=== PATIENT | male | born 1975 | race Caucasian/White ===

== ENCOUNTER 2016-08-29 10:10 | Day surgery (SDC) | payer MEDICAID ==
[2016-08-28 16:24] LABS: BASOPHILS 0.2 % (0-2); EOSINOPHILS 2.1 % (0-7); HEMATOCRIT 45.6 % (42.0-54.0); HEMOGLOBIN 15.2 g/dL (13.5-17.5); IMMATURE GRANULOCYTES 0.2 % (0-5); LYMPHOCYTES 47.8 % (15-50); MCH 31.3 pg (26.0-34.0); MCHC 33.3 g/dL (31.0-37.0); MEAN PLATELET VOLUME 9.5 fL (7.4-10.4); MONOCYTES 6.6 % (2-11); NEUTROPHILS 43.1 % (40-80); PLATELET COUNT 230 10x3/uL (130-400); RBC 4.85 10x6/uL (4.20-6.10); RDW 12.9 % (11.5-14.5); WBC 8.5 10x3/uL (4.8-10.8)
[2016-08-28 16:36] LABS: APPEARANCE CLEAR (CLEAR); BILIRUBIN NEGATIVE (NEGATIVE); COLOR YELLOW (YELLOW); GLUCOSE 250 mg/dL (NEGATIVE); KETONE NEGATIVE (NEGATIVE); LEUKOCYTE ESTERASE NEGATIVE (NEGATIVE); NITRITE NEGATIVE (NEGATIVE); PROTEIN NEGATIVE (NEGATIVE); SPECIFIC GRAVITY 1.025 (1.005-1.020); UROBILINOGEN NORMAL (NORMAL)
[2016-08-28 16:37] LABS: CALC OSMOLALITY 278 mosm/kg (275-300); CALCIUM 8.8 mg/dL (8.5-10.1); CARBON DIOXIDE 30.8 mmol/L (21.0-32.0); CHLORIDE - SERUM 103 mmol/L (98-107); CREATININE - SERUM 0.9 mg/dL (0.6-1.3); GLUCOSE 79 mg/dL (74-106); SODIUM 140 mmol/L (136-145); UREA NITROGEN 16 mg/dL (7-18); eGFR NON AFRICAN AMERICAN > 90 mL/min (90-120)
[~2016-08-29] VITALS: Ht 172.7 cm; Wt 100.0 kg
[~2016-08-29 10:10] MED LIST: PERCOCET 10/3251 TA1 PO
[2016-08-29] MEDS ORDERED: NOVOLOG100 U/M1 SC (10:41)
[2016-08-29] MEDS ORDERED: LANTUS INSULIN10 ML SC (10:42)
[2016-08-29 10:45] VITALS: BP 144/101; BMI 33.5
[2016-08-29 15:15] VITALS: BP 133/91
--- NOTE | 2016-08-29 15:15 | NUR ---
RECEIVED TO ROOM 2211 FROM RECOVERY ROOM VIA BED. ORIENTED TO ROOM AND CALL LIGHT SYSTEM. FAMILY IN ROOM. CALL LIGHT IN REACH. VSS. WILL CONTINUE WITH PLAN OF CARE.
--- NOTE | 2016-08-29 15:50 | NUR ---
MATTHIEU PO. LOVENOX SUBQ TO LLQ. HISTORY OBTAINED. SCDs TO BLE. FAMILY IN ROOM. CALL LIGHT IN REACH.
[2016-08-29 15:51] VITALS: Ht 172.7 cm; Wt 100.0 kg
--- NOTE | 2016-08-29 17:50 | NUR ---
REQUESTING MORE PAIN MEDS. STATES HIS PAIN IS STILL AT A 10.
--- NOTE | 2016-08-29 18:12 | NUR ---
MORPHINE 2 MG SIVP PER PATIENT REQUEST D/T PAIN OF 10. NO CHANGES IN INITIAL ASSESSMENT. SCDs TO BLE. FAMILY IN ROOM. CALL LIGHT IN REACH. WILL CONTINUE WITH PLAN OF CARE.
[2016-08-29 23:11] VITALS: BP 107/70
[2016-08-30] VITALS: BP 107/66
--- NOTE | 2016-08-30 00:26 | NUR ---
2029 FSBS 387.HOME MEDS NOT ADDRESSED.TALKED WITH MURALI NO ORDER FOR CONSULT WITH PC DOC.DISCUSSED WITH PT. WILL CALL DR. JACKSON WHO IS ADMITTING DOC.IN REGUARDS TO HOME MEDS STATES PLEASE DON'T CALL ANYONE I WANT FEW PEOPLE POSSIBLE TO KNOW I'M HERE.TOOK OWN INSULIN FROM HOME BROUGHT IN BY FAMILY MEMBER.LINDY BEE SUPER NOTIFIED
--- NOTE | 2016-08-30 07:25 | NUR ---
REPORT RECEIVED FROM CONTRACT ADMINISTRATION MANAGER NURSE. CALL LIGHT IN REACH.
[2016-08-30 07:58] VITALS: BP 128/72
--- NOTE | 2016-08-30 09:40 | NUR ---
ASSESSMENT COMPLETED. DRSG TO BACK CHANGED. DOES NOT WANT LOVENOX AT THIS TIME. STATES PAIN PILLS AREN'T WORKING SO REQUESTING MORPHINE. WILL GIVE IV PER ORDER. REFUSES SCDs ALSO. CALL LIGHT IN REACH. WILL CONTINUE WITH PLAN OF CARE.
[2016-08-30] MEDS ORDERED: PERCOCET 10/3251 TA1 PO (11:04)
--- NOTE | 2016-08-30 11:05 | OP ---
PATIENT NAME: MARIBELL ORNELAS MEDICAL RECORD: [id number] :71 LOCATION:D.MS [id number] ADMISSION DATE:08/29/16 SURGEON: GARRY HARRIS MD DATE OF OPERATION: 08/29/2016 DIAGNOSIS: Lumbar canal stenosis at L4-5 with bilateral nerve root compression. PROCEDURE: METRx lumbar laminectomy with bilateral foraminotomy and decompression of canal. SURGEON: Garry Harris MD. ESTIMATED BLOOD LOSS: 50 cc. SUMMARY: The patient was taken to the operating room and after an adequate level of general anesthetic, was prepped and draped in the usual aseptic manner on a Beau frame. A C-arm fluoroscope was used to localize the site of the incision and then dissection was carried out down to the interlaminar space of L4-5 using a C-arm fluoroscope and the METRx tube was placed over the L4-5 interlaminar space on the left using the C-arm fluoroscope. The tube was then attached to a retractor attached to the operating table. Following this, the medial aspect of the facet joint on the left was removed with a Midas-Charli drill with a match head drill bit. Decompression of the left side of the canal was carried out in this manner. Following this, removal of the lamina of L4 and L5 on the left all the way to the spinous process was carried out and then the removal of the ventral aspect of the spinous processes of L4 and L5 was also accomplished to expose the scar tissue and thickened ligamentum flavum. The thickened ligamentum flavum and scar tissue was then removed with a Kerrison, decompressing the contents of the spinal canal. Further removal of the medial aspect of the facet joint on the right side was carried out by directing the METRx tube in that direction. When a thorough decompression had been accomplished in the spinal canal, the wound was irrigated with an antibiotic solution and closure carried out in layers using 2-0 Dexon on the fascia, 3-0 Dexon on the subcutaneous tissue and a subcuticular stitch on the skin with skin glue on the skin surface being use. The patient tolerated the procedure well and was taken to recovery in stable condition. TRANSINT:[id number] Voice Confirmation ID: [id number] DOCUMENT ID: [id number] GARRY HARRIS MD at 1105 CC: [id number] DICTATION DATE: 08/29/16 1433 BACKROOM ASSOCIATE: 08/30/16 0017 ADM IN [facility] [address] [id number]
--- NOTE | 2016-08-30 11:05 | HP ---
PATIENT: MARIBELL ORNELAS MEDICAL RECORD: [id number] ACCOUNT: [id number] LOCATION:D.MS [place] : 71 ADMISSION DATE: 08/29/16 HISTORY AND PHYSICAL EXAMINATION CHIEF COMPLAINT: Back pain. HISTORY OF PRESENT ILLNESS: This is a young white male who presented to our office with back pain. He has had a previous surgery several years ago by another neurosurgeon. He presented to us from Dr. Zavala's clinic, insulin-dependent, with complaints of back pain, no particular event. He has L3-4 bilateral foraminal stenosis. He was provided with an injection and pain meds, which did not alleviate his pain. He has tried physical therapy 3 times a week with no relief. He has positive straight leg raise on the left and it was determined that he would benefit from surgery. PAST MEDICAL HISTORY: Significant for insulin-dependent diabetes. Low back pain and left shoulder pain. PAST SURGICAL HISTORY: He has had bilateral knee scoped. He has had surgery on his left hip. SOCIAL HISTORY: He is currently . ALLERGIES: None. Pain radiates down into the left leg. REVIEW OF SYSTEMS: He denies any recent chest pain, shortness of breath, or weight changes. PHYSICAL EXAMINATION: HEENT: He is normocephalic. Pupils are equal and reactive to light. CHEST: Clear to auscultation. HEART: S1 and S2. ABDOMEN: Soft. Bowel sounds present. EXTREMITIES: He has a sore on his left ring finger that Dr. Harris is aware of. He has straight leg raise and bilateral decreased patellar reflex and he has weak dorsiflexion on the left foot, it is 3/5. IMPRESSION: L4-5 lumbar canal stenosis with nerve root compression. PLAN: L4-5 laminectomy and bilateral foraminotomy. The risk and benefits of surgery have been explained to him in detail. Risks include bleeding, failure to relieve symptoms, problems with anesthesia and . Time was allowed for questions, questions were answered. The patient wishes to proceed with surgery. TRANSINT:[id number] Voice Confirmation ID: [id number] DOCUMENT ID: [id number] Dictated By: NICK LOPEZ I have interviewed/examined the above patient and agree with these documented findings. HISTORY AND PHYSICAL [id number] MARIBELL ORNELAS, GARRY ESPINO at 1105 at 1137 CC: [id number] DICTATION DATE: 08/28/16 1603 CODING FILE CLERK: 08/28/162026 ADM IN [facility] [address] [id number]
--- NOTE | 2016-08-30 11:12 | NUR ---
IV DC'D WITH TIP INTACT.
--- NOTE | 2016-08-30 13:00 | NUR ---
DC INSTRUCTIONS EXPLAINED TO PATIENT. VERBALIZED UNDERSTANDING. RX FOR PERCOCET HANDED TO PATIENT. DC'D TO VEHICLE VIA WC WITH FAMILY.
== END 2016-08-30 13:00 | disposition home or self-care (01) ==
LOC: D.OPS 10:10 → D.PAN 12:00 → D.OPS 12:00 → D.MS 15:02 → D.OPS 15:03 → D.MS 21:39 → D.OPS 21:39 → D.MS 08-30 13:00
PROVIDERS: Neurological Surgery
DX: M48.06 Spinal stenosis, lumbar region (principal); G54.4 Lumbosacral root disorders, not elsewhere classified; E11.9 Type 2 diabetes mellitus without complications; Z79.4 Long term (current) use of insulin; Z79.899 Other long term (current) drug therapy; Z01.812 Encounter for preprocedural laboratory examination

== ENCOUNTER → 2016-11-09 09:19 | Outpatient (CLI) | payer MEDICAID ==
[2016-08-29 15:51] VITALS: BMI 33.5
[~2016-11-09 09:19] MED LIST changes: +LANTUS INSULIN10 ML SC; +NOVOLOG100 U/M1 SC
== END | disposition home or self-care (01) ==
LOC: D.RAD 09:19
DX: M24.152 Other articular cartilage disorders, left hip (principal)

== ENCOUNTER 2018-08-30 19:32 | Inpatient (IN) | payer OTHER ==
[2018-08-30] MEDS ORDERED: PHENERGAN25 M1 PO (20:09)
[2018-08-30 20:45] LABS: BASOPHILS 0.1 % (0-2); EOSINOPHILS 0 % (0-7); HEMATOCRIT 51.7 % (42.0-54.0); HEMOGLOBIN 18.8 g/dL (13.5-17.5); IMMATURE GRANULOCYTES 0.4 % (0-5); LYMPHOCYTES 12.8 % (15-50); MCH 32.4 pg (26.0-34.0); MCHC 36.4 g/dL (31.0-37.0); MCV 89.1 fL (80.0-100.0); MEAN PLATELET VOLUME 9.5 fL (7.4-10.4); MONOCYTES 6.2 % (2-11); NEUTROPHILS 80.5 % (40-80); RDW 12.6 % (11.5-14.5); WBC 17.8 10x3/uL (4.8-10.8)
[2018-08-30 20:48] LABS: APPEARANCE CLEAR (CLEAR); COLOR YELLOW (YELLOW)
[2018-08-30 20:48] LABS: PLATELET COUNT 304 10x3/uL (130-400)
[2018-08-30 20:49] LABS: BILIRUBIN NEGATIVE (NEGATIVE); GLUCOSE 1000 mg/dL (NEGATIVE); KETONE LARGE mg/dL (NEGATIVE); NITRITE NEGATIVE (NEGATIVE); PROTEIN NEGATIVE (NEGATIVE); UROBILINOGEN NORMAL (NORMAL)
[2018-08-30 21:05] LABS: ALBUMIN 4.6 g/dL (3.4-5.0); ANION GAP 27.4 mmol/L (8-16); BILIRUBIN - TOTAL 1.11 mg/dL (0.2-1.3); CALCIUM 9.6 mg/dL (8.5-10.1); CARBON DIOXIDE 19.7 mmol/L (21.0-32.0); CREATININE - SERUM 2.1 mg/dL (0.6-1.3); POTASSIUM - SERUM 4.1 mmol/L (3.5-5.1); PROTEIN - SERUM 8.8 g/dL (6.4-8.2)
[2018-08-30 21:52] VITALS: BP 171/95
[2018-08-30 22:19] VITALS: BP 155/88
--- NOTE | 2018-08-30 22:30 | NUR ---
REPORT CALLED TO LILLY, FLOOR NURSE AT THIS TIME.
[2018-08-30 23:01] LABS: PHOSPHOROUS 4.4 mg/dL (2.5-4.9)
[2018-08-31] VITALS (7 sets, daily range): BP systolic 131–165; BP diastolic 85–95; BMI 30.9; BMI 30.8
--- NOTE | 2018-08-31 01:00 | NUR ---
RECIEVED PT FROM ER TO FLOOR VIA WHEELCHAIR. PT KEEPS DRINKING DIET SPRITE AND VOMITING. SUGGESTED TO PT THAT HE SHOULD NOT DRINK ANYTHING HE CONTINUES TO VOMIT IT UP. PT STATES HE IS JUST SO THIRSTY. ALSO C/O THROAT PAIN 12/26. SET UP DILAUDID ELECTROMECHANIC AND INSTRUCTED ON USE. PT HAS RECEIVED ALL BOLUSES AND IS ON CONTINUOUS FLUID. REVIEWED HOME MEDS AND HISTORY. ASSESSMENT COMPLETE PER FLOW-SHEET. WILL CONTINUE TO MONITOR.
[2018-08-31 06:16] LABS: BASOPHILS 0.1 % (0-2); EOSINOPHILS 0 % (0-7); HEMATOCRIT 43.1 % (42.0-54.0); HEMOGLOBIN 15.4 g/dL (13.5-17.5); IMMATURE GRANULOCYTES 0.4 % (0-5); LYMPHOCYTES 12.7 % (15-50); MCH 31.6 pg (26.0-34.0); MCHC 35.7 g/dL (31.0-37.0); MCV 88.5 fL (80.0-100.0); MEAN PLATELET VOLUME 9.1 fL (7.4-10.4); MONOCYTES 7.9 % (2-11); NEUTROPHILS 78.9 % (40-80); RBC 4.87 10x6/uL (4.20-6.10); RDW 12.8 % (11.5-14.5); WBC 15.6 10x3/uL (4.8-10.8)
[2018-08-31 06:19] LABS: PLATELET COUNT 231 10x3/uL (130-400)
[2018-08-31 06:59] LABS: ANION GAP 11.5 mmol/L (8-16); PHOSPHOROUS 3.6 mg/dL (2.5-4.9); POTASSIUM - SERUM 3.7 mmol/L (3.5-5.1)
[2018-08-31 07:00] LABS: CARBON DIOXIDE 27.2 mmol/L (21.0-32.0); CREATININE - SERUM 1.2 mg/dL (0.6-1.3)
--- NOTE | 2018-08-31 13:54 | NUR ---
SPOKE TO FEI IN MEDICAL IMAGING. PT HAS NOT BEEN NPO, PER DR LEON CAN DO TEST TOMORROW MORNING
--- NOTE | 2018-08-31 18:55 | NUR ---
PATIENT IN BED WITH IV INTACT. NO COMPLAINTS AT THIS TIME. NAUSEATED ON AND OFF ALL DAY, BUT STATED NEVER VOMITTED. ONLY HAD DRY HEEVES. TOLERATED SMALL AMOUNT OF CLEAR LIQUIDS. IV INTACT. CALL LIGHT WITHIN REACH.
[2018-09-01] VITALS: BP 144/84
--- NOTE | 2018-09-01 00:15 | NUR ---
PT C/O ITCHING. RED SPLOTCHY RASH ON BILAT THIGHS, ABDOMEN UP TO CHEST AND AROUND TO BACK. CALLED PHYSICIAN. ORDER FOR BENADRYL AND SOLUMEDROL. BENADRYL GIVEN, WAITING FOR TRACK FITTER TO PULL SOLUMEDROL. PT TOOK SHOWER AND BED WAS CHANGED. APPLIED NEW DRESSING WITH BETADINE WET TO DRY PER DRESSING CHANGE INSTRUCTIONS. NO OTHER NEEDS. WILL CONTINUE TO MONITOR.
--- NOTE | 2018-09-01 01:21 | NUR ---
PT C/O NAUSEA. GAVE ZOFRAN IV PUSH. POLICY WRITER FOR PAIN CONTROL. PT IS NPO FOR TEST IN AM. COMPLETE ASSESSMENT PER FLOW-SHEET. NO OTHER NEEDS. WILL CONTINUE TO MONITOR.
[2018-09-01 06:37] LABS: BASOPHILS 0.1 % (0-2); EOSINOPHILS 0.3 % (0-7); HEMATOCRIT 40.5 % (42.0-54.0); HEMOGLOBIN 14.1 g/dL (13.5-17.5); IMMATURE GRANULOCYTES 0.3 % (0-5); LYMPHOCYTES 28.4 % (15-50); MCH 31.6 pg (26.0-34.0); MCHC 34.8 g/dL (31.0-37.0); MEAN PLATELET VOLUME 9.7 fL (7.4-10.4); MONOCYTES 6.7 % (2-11); NEUTROPHILS 64.2 % (40-80); PLATELET COUNT 204 10x3/uL (130-400); RBC 4.46 10x6/uL (4.20-6.10); RDW 12.7 % (11.5-14.5)
[2018-09-01 07:03] LABS: MCV 90.8 fL (80.0-100.0)
[2018-09-01 07:28] LABS: CALC OSMOLALITY 277 mosm/kg (275-300); CALCIUM 7.5 mg/dL (8.5-10.1); CHLORIDE - SERUM 97 mmol/L (98-107); CREATININE - SERUM 0.9 mg/dL (0.6-1.3); GLUCOSE 278 mg/dL (74-106); LIPASE 74 U/L (73-393); MAGNESIUM - SERUM 1.7 mg/dL (1.8-2.4); POTASSIUM - SERUM 3.8 mmol/L (3.5-5.1); SODIUM 134 mmol/L (136-145); eGFR NON AFRICAN AMERICAN > 90 mL/min (90-120)
[2018-09-01 07:31] LABS: AMYLASE - SERUM 26 U/L (25-115); PHOSPHOROUS 2.5 mg/dL (2.5-4.9); UREA NITROGEN 12 mg/dL (7-18)
--- NOTE | 2018-09-01 07:59 | NUR ---
PT SITTING IN BED. DENIES PAIN. CO OF "DRY HEAVING BETTER AFTER ZOFRAN." NO S/S OF ACUTE DISTRESS NPO FOR ULTRA SOUND THIS AM. CL IN PLACE.
[2018-09-01 10:13] VITALS: BP 158/87
[2018-09-01 13:54] VITALS: BP 150/98
[2018-09-01 17:49] VITALS: BP 146/95
--- NOTE | 2018-09-01 18:19 | NUR ---
PT RESTING IN BED. PHENERGAN GIVEN X 2 THIS SHIFT FOR CO OF NAUSEA. NO EMESIS NOTED. NO S.S OF ACUTE DISTRESS. CL IN PLACE.
[2018-09-01 21:25] VITALS: BP 147/95
--- NOTE | 2018-09-01 22:13 | NUR ---
PT ALERT & ORIENTED. C/O NAUSEA. GAVE ZOFRAN 4 MG IV PUSH. GAVE SCHEDULED MEDS. SEE FLOW-SHEET FOR COMPLETE ASSESSMENT. NO OTHER NEEDS. WILL REASSESS AND CONTINUE TO MONITOR.
[2018-09-02 01:19] VITALS: BP 145/92
[2018-09-02 06:53] LABS: BASOPHILS 0.1 % (0-2); EOSINOPHILS 0.5 % (0-7); HEMATOCRIT 41.6 % (42.0-54.0); HEMOGLOBIN 14.6 g/dL (13.5-17.5); IMMATURE GRANULOCYTES 0.1 % (0-5); LYMPHOCYTES 36.5 % (15-50); MCH 31.6 pg (26.0-34.0); MCHC 35.1 g/dL (31.0-37.0); MEAN PLATELET VOLUME 9.3 fL (7.4-10.4); MONOCYTES 9.1 % (2-11); NEUTROPHILS 53.7 % (40-80); PLATELET COUNT 197 10x3/uL (130-400); RBC 4.62 10x6/uL (4.20-6.10); RDW 12.4 % (11.5-14.5)
[2018-09-02 07:30] LABS: AMYLASE - SERUM 24 U/L (25-115); CALCIUM 8.1 mg/dL (8.5-10.1); CHLORIDE - SERUM 99 mmol/L (98-107); CREATININE - SERUM 0.9 mg/dL (0.6-1.3); LIPASE 101 U/L (73-393); PHOSPHOROUS 3.1 mg/dL (2.5-4.9); POTASSIUM - SERUM 3.5 mmol/L (3.5-5.1); SODIUM 138 mmol/L (136-145); WBC 7.6 10x3/uL (4.8-10.8); eGFR NON AFRICAN AMERICAN > 90 mL/min (90-120)
[2018-09-02 07:32] LABS: CALC OSMOLALITY 279 mosm/kg (275-300); CARBON DIOXIDE 31.3 mmol/L (21.0-32.0); GLUCOSE 215 mg/dL (74-106); UREA NITROGEN 8 mg/dL (7-18)
--- NOTE | 2018-09-02 08:43 | NUR ---
PT REFUSED PATCH THIS MORNING, REQUESTRED TO HAVE A BIT OF MORE SOLID FOODS TODAY AND STATED HE IS READY TO GO HOME. PT STATED HIS THROAT FELT BETTER. BED IN LOWEST POSITION, CL IN REACH ADVISED DOCTORS SHOULD BE AROUND THIS MORNING NAD WE CAN INQUIRE ON MORE OF A SOLID SUBSTANCE THAN CLEAR LIQUIDS
[2018-09-02 08:55] VITALS: BP 157/99
[2018-09-02 12:34] VITALS: BP 155/97
--- NOTE | 2018-09-02 12:56 | NUR ---
PT HAS BEEN NPO OR ON A CLEAR LIQUID DIET SINCE ADMIT HAS NOT NEEDED TO GO WOULD LIKE OT HAVE SOME MORE OF A SOLID SUBSTANCE TO EAT SO HE CAN USE THE RESTROOM, PT DECLINED MIRALAX AND WOULD LIKE A FULL LIQUID OR DIABETIC DIET
--- NOTE | 2018-09-02 13:32 | NUR ---
NUTRITION F/U CURRENTLY ON CLEAR LIQUID DIET. WILL MONITOR DIET ADVANCEMENT, PO INTAKE. RD FOLLOWING
--- NOTE | 2018-09-02 17:06 | NUR ---
I AGREE WITH THE DOUBLE CUTTER ASSESSMENT.
[2018-09-02 17:33] VITALS: BP 150/93
[2018-09-02 20:00] VITALS: BP 154/99
[2018-09-02 20:06] LABS: SPE - A/G RATIO 1.1 (0.7-1.7); SPE - ALBUMIN 4.3 g/dL (2.9-4.4); SPE - ALPHA-1 GLOBULIN 0.3 g/dL (0.0-0.4); SPE - ALPHA-2 GLOBULIN 1.1 g/dL (0.4-1.0); SPE - BETA GLOBULIN 1.3 g/dL (0.7-1.3); SPE - GAMMA GLOBULIN 1.3 g/dL (0.4-1.8); SPE - M-SPIKE Not Observed g/dL (Not Observed); SPE - TOTAL PROTEIN 8.2 g/dL (6.0-8.5)
--- NOTE | 2018-09-02 23:00 | NUR ---
RECEIVED CARE FROM PREVIOUS NURSE. UP AMBULATING IN [place]STI[facility]. NO NEEDS VOICED.
--- NOTE | 2018-09-03 02:14 | NUR ---
PT C/O FEELING LIKE SUGAR WAS LOW. HANDS SHAKING AND CLAMMY. FSBS DONE WITH RESULTS OF 70. PT REPORTS WHEN HIS SUGAR HAS BEEN RUNNING HIGH AND IT DROPS TO NORMAL HE FEELS LIKE HE IS IN THE 30'S. HARI CRACKERS AND PEANUT BUTTER PROVIDED. PT HAD APPLE JUICE AT BEDSIDE ALREADY. WILL RECHECK SUGAR IN ONE HOUR.
--- NOTE | 2018-09-03 02:58 | NUR ---
I have reviewed this patient and I concur with the Shift Assessment completed by the Licensed Practical Nurse today this shift.
--- NOTE | 2018-09-03 03:23 | NUR ---
FSBS RECHECK 100
[2018-09-03 05:39] LABS: BASOPHILS 0.3 % (0-2); EOSINOPHILS 1.2 % (0-7); HEMATOCRIT 45.3 % (42.0-54.0); HEMOGLOBIN 15.8 g/dL (13.5-17.5); IMMATURE GRANULOCYTES 0.1 % (0-5); LYMPHOCYTES 42.2 % (15-50); MCH 31.5 pg (26.0-34.0); MCHC 34.9 g/dL (31.0-37.0); MCV 90.2 fL (80.0-100.0); MEAN PLATELET VOLUME 9.2 fL (7.4-10.4); MONOCYTES 8.9 % (2-11); NEUTROPHILS 47.3 % (40-80); PLATELET COUNT 198 10x3/uL (130-400); RBC 5.02 10x6/uL (4.20-6.10); RDW 12.1 % (11.5-14.5); WBC 7.2 10x3/uL (4.8-10.8)
[2018-09-03 05:55] LABS: CALC OSMOLALITY 276 mosm/kg (275-300); CALCIUM 8.3 mg/dL (8.5-10.1); CHLORIDE - SERUM 100 mmol/L (98-107); CREATININE - SERUM 0.8 mg/dL (0.6-1.3); LIPASE 102 U/L (73-393); MAGNESIUM - SERUM 1.9 mg/dL (1.8-2.4); PHOSPHOROUS 3.8 mg/dL (2.5-4.9); POTASSIUM - SERUM 3.3 mmol/L (3.5-5.1); SODIUM 140 mmol/L (136-145); UREA NITROGEN 8 mg/dL (7-18); eGFR NON AFRICAN AMERICAN > 90 mL/min (90-120)
[2018-09-03 06:02] LABS: AMYLASE - SERUM 33 U/L (25-115); GLUCOSE 97 mg/dL (74-106)
[2018-09-03 06:26] VITALS: BP 132/92
[2018-09-03 09:30] VITALS: BP 139/92
--- NOTE | 2018-09-03 11:28 | NUR ---
0720 AWAKE ALERT ORIENTED X 4 VOICES NO COMPLAINTS ASSESSMENT COMPLETE HEBER IRAHETA, FOR DR SUMMERS, AT BEDSIDE ROUNDING ON PATIENT
--- NOTE | 2018-09-03 11:32 | NUR ---
1100 D/C IV DISCHARGE PAPERS SIGNED AND INSTRUCTIIONS PRPOVIDED. STATED HIS RIDE WILL NOT BE HERE UNTIL AROUND 1230. ANSWERED ALL QUESTIIONS FOR PATIENT. PROVIDED HYGIENE ITEMS SO PATIENT CAN TAKE SHOWER.
--- NOTE | 2018-09-03 11:32 | NUR ---
1030 D/C DILAUDID MEDIA RELATIONS MANAGER
== END 2018-09-03 12:02 | disposition home or self-care (01) | DRG 682 ==
LOC: D.ER 19:32 → D.MS 21:35
PROVIDERS: Emergency Medicine; Internal Medicine Nephrology; ADMIT Family Medicine; ATTEND Family Medicine
DX: N17.9 Acute kidney failure, unspecified (principal); E11.10 Type 2 diabetes mellitus with ketoacidosis without coma; E87.1 Hypo-osmolality and hyponatremia; B37.0 Candidal stomatitis; R39.2 Extrarenal uremia; E86.0 Dehydration; E11.69 Type 2 diabetes mellitus with other specified complication; K12.1 Other forms of stomatitis; K12.0 Recurrent oral aphthae

== ENCOUNTER 2018-11-13 06:23 | Inpatient (IN) | payer OTHER ==
[~2018-11-13] VITALS: Ht 172.7 cm; Wt 95.7 kg
[2018-11-13] VITALS (13 sets, daily range): BP systolic 108–157; BP diastolic 65–100; Ht 172.7 cm; Wt 95.7 kg
[~2018-11-13 06:23] MED LIST changes: +PHENERGAN25 M1 PO
[2018-11-13 07:11] LABS: BASOPHILS 0.1 % (0-2); EOSINOPHILS 0.1 % (0-7); HEMATOCRIT 50.2 % (42.0-54.0); HEMOGLOBIN 18.3 g/dL (13.5-17.5); IMMATURE GRANULOCYTES 0.7 % (0-5); LYMPHOCYTES 13.6 % (15-50); MCH 33.2 pg (26.0-34.0); MCHC 36.5 g/dL (31.0-37.0); MCV 90.9 fL (80.0-100.0); MEAN PLATELET VOLUME 9.8 fL (7.4-10.4); NEUTROPHILS 83.5 % (40-80); RBC 5.52 10x6/uL (4.20-6.10); RDW 12.8 % (11.5-14.5); WBC 18.4 10x3/uL (4.8-10.8)
--- NOTE | 2018-11-13 07:12 | NUR ---
ASSUMED CARE OF PATIENT. PATIENT SUPINE IN BED, C/O VOMITING. EMESIS CLEAR AND SCANT AMOUNT. PATIENT DRINKING A BOTTLE OF WATER BEFORE AND AFTER VOMITING, SPEWING FROM MOUTH. VITAL SIGNS STABLE. EKG PERFORMED, IV TO R FOREARM PATENT WITH NS BOLUS INFUSING.
[2018-11-13 07:20] LABS: PLATELET COUNT 295 10x3/uL (130-400)
[2018-11-13 07:21] LABS: ALBUMIN 4.5 g/dL (3.4-5.0); ALKALINE PHOSPHATASE 92 U/L (46-116); ALT (SGPT) 40 U/L (10-68); AMYLASE - SERUM 39 U/L (25-115); BILIRUBIN - TOTAL 1.06 mg/dL (0.2-1.3); CALCIUM 9.8 mg/dL (8.5-10.1); CARBON DIOXIDE 15.6 mmol/L (21.0-32.0); CREATININE - SERUM 1.9 mg/dL (0.6-1.3); LIPASE 85 U/L (73-393); POTASSIUM - SERUM 4.7 mmol/L (3.5-5.1); PROTEIN - SERUM 8.9 g/dL (6.4-8.2); SODIUM 131 mmol/L (136-145); TROPONIN-I < 0.017 ng/mL (0.000-0.060); UREA NITROGEN 29 mg/dL (7-18); eGFR NON AFRICAN AMERICAN 41 mL/min (90-120)
[2018-11-13 07:25] LABS: APPEARANCE HAZY (CLEAR); BILIRUBIN NEGATIVE (NEGATIVE); COLOR YELLOW (YELLOW); GLUCOSE 1000 mg/dL (NEGATIVE); KETONE LARGE mg/dL (NEGATIVE); NITRITE NEGATIVE (NEGATIVE); PROTEIN NEGATIVE (NEGATIVE); UROBILINOGEN NORMAL (NORMAL)
[2018-11-13 07:25] LABS: CALC OSMOLALITY 296 mosm/kg (275-300)
[2018-11-13 07:28] LABS: CHLORIDE - SERUM 85 mmol/L (98-107); GLUCOSE 606 mg/dL (74-106)
--- NOTE | 2018-11-13 07:28 | NUR ---
NOTIFIED OF CRITICAL LABS FOLLOWS, GLUCOSE 606, CHLORIDE 85. EDP NOTIFIED WELL PT'S PRIMARY ED RN.
--- NOTE | 2018-11-13 07:32 | NUR ---
CRITICAL LABS REPORTED TO DR GALDAMEZ. VERBAL ORDERS RECVD.
--- NOTE | 2018-11-13 08:06 | NUR ---
PATIENT RESTING. NO DISTRESS. EATING ICE CHIPS ORDERED BY DR. GALDAMEZ.
--- NOTE | 2018-11-13 09:11 | NUR ---
critical glucose of [address] nieves. no new oders.
--- NOTE | 2018-11-13 09:22 | NUR ---
LAB CALLED WITH CRITICAL RESULT.. LACTIC ACID 3.6
--- NOTE | 2018-11-13 09:33 | NUR ---
Report and care handed off to livan singh in icu. pt tolerated transport without issues to room 2309.
--- NOTE | 2018-11-13 09:40 | NUR ---
RECEIVED PT FROM ER. HOOKED UP TO MONITOR. VSS. WILL CHECK SUGAR AND BEGIN DKA PROTOCOL. PT ALERT AND ORIENTED. CALL CHAVEZ IN REACH
--- NOTE | 2018-11-13 11:00 | NUR ---
PT STABLE. INSULIN DRIP PER PROTOCOL.
--- NOTE | 2018-11-13 13:00 | NUR ---
DR. HERNÁNDEZ MADE ROUNDS. INSULIN DRIP INFUSING PER PROTOCOL. CALL CHAVEZ IN REACH. NO COMPLAINTS
--- NOTE | 2018-11-13 15:44 | NUR ---
PATIENT TAKEN FOR GASTRIC EMPTYING NM SCAN
[2018-11-13 17:41] LABS: CALCIUM 9.1 mg/dL (8.5-10.1)
[2018-11-13 17:46] LABS: ANION GAP 13.5 mmol/L (8-16); CARBON DIOXIDE 28.3 mmol/L (21.0-32.0); CREATININE - SERUM 1.4 mg/dL (0.6-1.3); POTASSIUM - SERUM 3.8 mmol/L (3.5-5.1)
--- NOTE | 2018-11-13 18:00 | NUR ---
NOTIFIED DR. HERNÁNDEZ THAT ANION GAP IS CLOSED AND SERUM KETONES ARE NEGATIVE. OBTAINED ORDERS FOR CLEAR LIQUID DIET AND TO START HOME INSULIN TONIGHT (LANTUS). DISCOTINUE INSULIN DRIP 2 HOURS AFTER GIVING LANTUS
--- NOTE | 2018-11-13 19:10 | NUR ---
Received patient resting in bed with eyes open, assessment completed per flowsheet. Patient AO x4, answers appropriately/follows instructions. S1/S2 noted NSR on telemetry, rythmic and regular. Breathing is even/unlabored on room air with O2 sat 96%, lung sounds clear throughtout. Abdomen is round/soft with bowel sounds active x4, non-tender. Patient C/O intermittent aching 5/10, PRN medication provided. All pulses palpable with cap refill < 3 sec, skin warm/dry. No further needs at this time, see flowsheet for details. All VSS and will continue to monitor.
--- NOTE | 2018-11-13 21:10 | NUR ---
Patient resting in bed with eyes open, discussed current status with all questions answered to satisfaction. HS meds given as ordered, no further needs at this time and will continue to monitor.
[2018-11-13 21:46] LABS: ANION GAP 11.3 mmol/L (8-16); CALCIUM 8.4 mg/dL (8.5-10.1); CARBON DIOXIDE 28.4 mmol/L (21.0-32.0); CREATININE - SERUM 1.2 mg/dL (0.6-1.3); POTASSIUM - SERUM 3.7 mmol/L (3.5-5.1)
--- NOTE | 2018-11-13 23:10 | NUR ---
Reassessment completed per flowsheet, no changes noted from previous assessment. Clear liquids provided at request, denies needs at this time. Insulin GTT D/C per Dr Cardozo orders, see flowsheet for details. All VSS and will continue to monitor.
[2018-11-14] VITALS (23 sets, daily range): BP systolic 121–187; BP diastolic 70–151
--- NOTE | 2018-11-14 01:00 | NUR ---
Patient sitting on edge of bed c/o acid reflux, dry heaves observed. PRN medication provided with some stated relief, no further needs and will continue to monitor.
--- NOTE | 2018-11-14 03:10 | NUR ---
Reassessment completed per flowsheet, no changes noted from previous assessment. Patient AO x4, answers appropriately/follows instructions. Patient C/O acid reflux, denies needs at this time. All pulses palpable with cap refill < 3 sec, skin warm/dry. Denies pain or other needs, see flowsheet for details. All VSS and will continue to monitor.
[2018-11-14 04:34] LABS: BASOPHILS 0.1 % (0-2); EOSINOPHILS 0.1 % (0-7); HEMATOCRIT 43.5 % (42.0-54.0); HEMOGLOBIN 15.7 g/dL (13.5-17.5); IMMATURE GRANULOCYTES 0.3 % (0-5); MCH 32.3 pg (26.0-34.0); MCHC 36.1 g/dL (31.0-37.0); MCV 89.5 fL (80.0-100.0); MEAN PLATELET VOLUME 9.4 fL (7.4-10.4); MONOCYTES 5.1 % (2-11); NEUTROPHILS 81.4 % (40-80); PLATELET COUNT 239 10x3/uL (130-400); RBC 4.86 10x6/uL (4.20-6.10); RDW 12.7 % (11.5-14.5)
[2018-11-14 04:57] LABS: ALBUMIN 3.5 g/dL (3.4-5.0); ANION GAP 16.3 mmol/L (8-16); BILIRUBIN - TOTAL 0.67 mg/dL (0.2-1.3); CALCIUM 8.4 mg/dL (8.5-10.1); CREATININE - SERUM 1.2 mg/dL (0.6-1.3); MAGNESIUM - SERUM 1.6 mg/dL (1.8-2.4); PROTEIN - SERUM 7.2 g/dL (6.4-8.2)
[2018-11-14 05:02] LABS: POTASSIUM - SERUM 4.3 mmol/L (3.5-5.1)
--- NOTE | 2018-11-14 09:28 | NUR ---
RESTARTED INSULIN DRIP PER PROTOCOL. PATIENT IS BACK IN DKA. BG 373. DRIP PER CALCULATION 9.4UNITS/HR. HUNG BACK OF NORMAL SALINE DUE TO LOW SODIUM.
[2018-11-14 09:42] LABS: AMYLASE - SERUM 34 U/L (25-115); LIPASE 64 U/L (73-393)
--- NOTE | 2018-11-14 11:00 | NUR ---
PT STABLE. STILL NAUSEATED
--- NOTE | 2018-11-14 13:00 | NUR ---
OBTAINED ORDERS FOR ZOFRAN DRIP AND CHLORESEPTIC SPRAY. PT STABLE
--- NOTE | 2018-11-14 15:00 | NUR ---
PT STABLE. STILL ON INSULIN DRIP. BG IN GOAL RANGE
[2018-11-14 18:57] LABS: CALC OSMOLALITY 279 mosm/kg (275-300); CALCIUM 8.1 mg/dL (8.5-10.1); CARBON DIOXIDE 25.9 mmol/L (21.0-32.0); CHLORIDE - SERUM 101 mmol/L (98-107); POTASSIUM - SERUM 3.7 mmol/L (3.5-5.1); SODIUM 138 mmol/L (136-145); UREA NITROGEN 15 mg/dL (7-18); eGFR NON AFRICAN AMERICAN 86 mL/min (90-120)
[2018-11-14 19:02] LABS: GLUCOSE 144 mg/dL (74-106)
--- NOTE | 2018-11-14 19:20 | NUR ---
Received patient resting in bed with eyes closed, assessment completed per flowsheet. Patient AO x4, answers appropriately/follows instructions. S1/s2 noted Sinus Tach on telemetry, rythmic and regular. Breathing is even/unlabored on room air with O2 sat 95%, lung sounds clear throughout. Abdomen is round/soft with bowel sounds active x4, c/o nausea due to "acid reflux" per patient statement. All pulses palpable with cap refill < 3 sec, skin warm/dry. Denies further needs at this time, see flowsheet for details. All VSS and will continue to monitor.
--- NOTE | 2018-11-14 21:00 | NUR ---
Patient sitting up on bedside c/o abdominal aching/nausea, dry heaves noted with patient stating cause of "acid reflux". Lantus given as ordered, all VSS and will continue to monitor.
--- NOTE | 2018-11-14 23:00 | NUR ---
Reassessment completed per flowsheet, no changes noted from previous assessment. Patient AO x4, answers appropriately/follows instructions. C/O slight nausea/abdominal aching 2/10, dry heaves/clear frothy liquid observed. All pulses palpable with cap refill < 3 sec, denies further needs at this time. See flowsheet for details, all VSS and will continue to monitor.
[2018-11-15] VITALS (24 sets, daily range): BP systolic 117–170; BP diastolic 47–105
--- NOTE | 2018-11-15 01:00 | NUR ---
Patient awake sitting on bedside c/o nausea, states "this zofran doesn't work" and "phenergan has helped in the past". Full linen change provided, patient bathed self with CHG. Notified Kameron SOTO of patient status, will address with patient. All VSS and will continue to monitor.
--- NOTE | 2018-11-15 03:00 | NUR ---
Reassessment completed per flowsheet, no changes noted from previous assessment. Patient c/o nausea, notified Kameron SOTO with new orders received. Denies other needs at this time, see flowsheet for details. All VSS and will continue to monitor.
--- NOTE | 2018-11-15 05:00 | NUR ---
Patient resting in bed with eyes closed, Senior Merchandiser at bedside to collect AM labs. Patient states slight nausea, improved post Promathazine PO. Denies needs at this time, all VSS and will continue to monitor.
[2018-11-15 05:02] LABS: MAGNESIUM - SERUM 1.8 mg/dL (1.8-2.4); PHOSPHOROUS 2.6 mg/dL (2.5-4.9)
--- NOTE | 2018-11-15 07:00 | NUR ---
PATIENT UPSET. STATED HE DOES NOT WANT TO BE IN THE HOSPITAL. EDUCATED PATIENT ON HIS CONDITION AND INSULIN DRIP. VSS. WILL CONTINUE TO MONITOR. EMPTIED 800 OUT OF URINAL.
--- NOTE | 2018-11-15 08:54 | NUR ---
PCV'S NOTED ON TELEMETRY. ASSESED PATIENT. PATIENT DENIES DISTRESS OR NEEDS. REPLACED TELEMETRY LEADS.
--- NOTE | 2018-11-15 10:30 | NUR ---
ORAL CARE PROVIDED AT THIS TIME.
--- NOTE | 2018-11-15 10:47 | NUR ---
CARE PLAN DONE AT THIS TIME. [employer] DATES UPDATED.
--- NOTE | 2018-11-15 12:30 | NUR ---
patient complaining of nausea and vomiting. spoke to dr oh.
--- NOTE | 2018-11-15 12:37 | NUR ---
Nutrition follow-up: Pt now on clear liquids; continues with N/V and dry heaving Labs reviewed Wt: 208# Will need nutrition support if N/V continue. RDN following.
--- NOTE | 2018-11-15 13:55 | NUR ---
DC'D RIGHT WRIST IV. ALL FLUIDS GOING TO RIGHT AC.
--- NOTE | 2018-11-15 13:55 | NUR ---
gave patient a scopalamine patch.
--- NOTE | 2018-11-15 14:15 | NUR ---
PATIENT COMPLAINS OF NAUSEA. PATIENT IS DRY HEAVING.
--- NOTE | 2018-11-15 15:00 | NUR ---
AFEBRILE. PATIENT TURNED. PROVIDED WARM BLANKET. NAUSEA STILL PRESENT. NO DISTRESS NOTED. REASESSSMENT COMPLETED. NO CHANGES. WILL CONTINUE TO MONITOR.
--- NOTE | 2018-11-15 17:15 | NUR ---
patient sleeping. family at bedside. patient is alert and oriented. denies nausea. patient states relief of nausea from phenergan and scopolamine patch. NPO. continue insulin drip per Dr. Cardozo. call light within reach. will continue to monitor.
--- NOTE | 2018-11-15 19:30 | NUR ---
RECEIVED CARE OF PT, ASSESSMENT PER FLOWSHEET. PT ALERT AND ORIENTED X 4, HR SR ON CM, GTT'S PER FLOWSHEET, ABLE TO REPOSITION SELF, DENIES ANY NEEDS.
--- NOTE | 2018-11-15 21:10 | NUR ---
NO VISITORS PRESENT AT THIS TIME, PT RESTING IN NO APPARENT DISTRESS, VSS.
--- NOTE | 2018-11-15 21:38 | MORECARE ---
CASE MANAGEMENT DISCHARGE SUMMARY PATIENT: MARIBELL ORNELAS UNIT: [id number] ADM DATE: 11/13/18 AGE: 43 : 71 SEX: M ROOM/BED: D.2309 AUTHOR: TONY GAINES PHYSICIAN: REFERRING PHYSICIAN: LEIDA HERNÁNDEZ MD DATE OF SERVICE: 11/15/18 Discharge Plan Patient Name: MARIBELL ORNELAS [facility] [facility] 1975 Planned Disposition: Home Anticipated Discharge Date: Discharge Date: Expected LOS: Initial Reviewer: [email or web address] Initial Review Date: 11/15/2018 Generated: 11/15/18 10:37 pm Patient Name: MARIBELL ORNELAS Page [id number] at 2138 All edits/amendments must be made on the electronic document DICTATION DATE: 11/15/182136 HITTING COACH: JI 11/15/182136 RPT#: [id number] DC DATE: STATUS: ADM IN [facility] [address] [place] [address] END OF REPORT
--- NOTE | 2018-11-15 21:45 | MORECARE ---
CASE MANAGEMENT DISCHARGE SUMMARY PATIENT: MARIBELL ORNELAS UNIT: [id number] ADM DATE: 11/13/18 AGE: 43 : 71 SEX: M ROOM/BED: D.2309 AUTHOR: LIANA,DOC PHYSICIAN: REFERRING PHYSICIAN: LEIDA HERNÁNDEZ MD DATE OF SERVICE: 11/15/18 Discharge Plan Patient Name: MARIBELL ORNELAS Facility: [facility]:[place] : 1975 Planned Disposition: Home Anticipated Discharge Date: Discharge Date: Expected LOS: Initial Reviewer: [email or web address] Initial Review Date: 11/15/2018 Generated: 11/15/18 10:44 pm Comments DCP- Discharge Planning Updated by [email or web address]: Divya Mariscal on 11/15/18 8:[address] Patient Name: MARIBELL ORNELAS Admission Status: ER Accout number: [id number] Admission Date: 11-13-2018 : 1975 Admission Diagnosis: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 Patient lives at home alone where he is independent with his care and plans to return there upon discharge. Patient feels this would be a safe discharge. CM discussed availability / needs of home health and medical equipment. Patient denies any discharge needs at this time. Patient states he will have his family drive him home upon discharge. CM will continue to follow and assist as needed with discharge planning / needs. Child Care Aide: Divya Mariscal DCPIA - Discharge Planning Initial Assessment Updated by [email or web address]: Divya Mariscal on 11/15/18 9:39 pm * Is the patient Alert and Oriented? Yes * How many steps to enter\exit or inside your home? * PCP [facility] * Pharmacy [facility] * Preadmission Environment Home Alone * ADLs Independent * Equipment None * List name and contact numbers for known caregivers / representatives who currently or will assist patient after discharge: [facility] [phone] * Verbal permission to speak to the caregivers and representatives has been obtained from the patient. N/A * Community resources currently utilized None * Additional services required to return to the preadmission environment? No * Can the patient safely return to the preadmission environment? Yes * Has this patient been hospitalized within the prior 30 days at any hospital? No Last DP export: 11/15/18 8:38 p Patient Name: MARIBELL ORNELAS Page [id number] at 2145 All edits/amendments must be made on the electronic document DICTATION DATE: 11/15/182143 MARINE FARMER: JI 11/15/182143 RPT#: [id number] DC DATE: STATUS: ADM IN [facility] [address] [place] [address] END OF REPORT
--- NOTE | 2018-11-15 23:30 | NUR ---
REASSESSMENT PER FLOWSHEET, NO ACUTE CHANGES NOTED, SR ON CM.
[2018-11-16] VITALS (17 sets, daily range): BP systolic 101–138; BP diastolic 66–95
--- NOTE | 2018-11-16 01:28 | NUR ---
DIET SPRITE PROVIDED PER REQUEST, PT DENIES ANY OTHER NEEDS AT THIS TIME, VSS.
[2018-11-16 04:39] LABS: BASOPHILS 0.1 % (0-2); EOSINOPHILS 0.4 % (0-7); HEMATOCRIT 42.5 % (42.0-54.0); HEMOGLOBIN 15.3 g/dL (13.5-17.5); IMMATURE GRANULOCYTES 0.2 % (0-5); LYMPHOCYTES 33.7 % (15-50); MCH 32.4 pg (26.0-34.0); MEAN PLATELET VOLUME 9.1 fL (7.4-10.4); MONOCYTES 7.9 % (2-11); NEUTROPHILS 57.7 % (40-80); PLATELET COUNT 203 10x3/uL (130-400); RBC 4.72 10x6/uL (4.20-6.10); RDW 12.2 % (11.5-14.5); WBC 8.4 10x3/uL (4.8-10.8)
[2018-11-16 04:44] LABS: CALC OSMOLALITY 271 mosm/kg (275-300); CALCIUM 7.8 mg/dL (8.5-10.1); CARBON DIOXIDE 30.1 mmol/L (21.0-32.0); CHLORIDE - SERUM 101 mmol/L (98-107); CREATININE - SERUM 0.8 mg/dL (0.6-1.3); GLUCOSE 137 mg/dL (74-106); MAGNESIUM - SERUM 1.8 mg/dL (1.8-2.4); PHOSPHOROUS 3.1 mg/dL (2.5-4.9); POTASSIUM - SERUM 3.6 mmol/L (3.5-5.1); SODIUM 136 mmol/L (136-145); eGFR NON AFRICAN AMERICAN > 90 mL/min (90-120)
[2018-11-16 04:47] LABS: UREA NITROGEN 7 mg/dL (7-18)
--- NOTE | 2018-11-16 05:15 | NUR ---
NO VISITORS PRESENT AT THIS TIME, PT RESTING WITH EYES CLOSED, VSS.
--- NOTE | 2018-11-16 07:25 | NUR ---
LYING IN BED RESTING AT THIS TIME. NO ACUTE DISTRESS NOTED. VSS. RESPIRATIONS STEADY AND UNLABORED. AWAKENS EASILY WHEN SPOKEN TO. INSULIN GTT TITRATED PER DKA PROTOCOL ORDERS. WILL CONTINUE PLAN OF CARE.
--- NOTE | 2018-11-16 09:22 | NUR ---
ANION GAP 8.5, ON INSULIN GTT, TITRATED PER DKA PROTOCOL, SEE DKA FLOWSHEET. LAST BLOOD SUGAR NOTED AT 112. ATTEMPTED TO CONTACT DR HERNÁNDEZ FOR FURTHER ORDERS SUCH POSSIBLY DC INSULIN GTT. NO ANSWER NOTED. WILL CONTINUE TO CONTACT PHYSICIAN. NO ACUTE DISTRESS NOTED. VSS. WILL CONTINUE PLAN OF CARE.
--- NOTE | 2018-11-16 09:27 | NUR ---
PER DR HERNÁNDEZ, DC INSULIN GTT AND START CHECKING BLOOD GLUCOSE Q3H X 12 HOURS THEN FURTHER ORDERS WILL BE RECIEVED FROM THERE WHEN HE ROUNDS ON PT. VSS. WILL CONTINUE PLAN OF CARE.
--- NOTE | 2018-11-16 11:04 | NUR ---
NO ACUTE DISTRESS NOTED. NO CHANGE. VSS. PT INDEPENDENT IN BED. WILL CONTINUE PLAN OF CARE.
--- NOTE | 2018-11-16 12:50 | NUR ---
UP IN ROOM AT THIS TIME GIVING SELF BATH. TOTAL LINEN CHANGE PROVIDED. NO ACUTE DISTRESS NOTED. VSS. WILL CONTINUE PLAN OF CARE.
--- NOTE | 2018-11-16 14:19 | NUR ---
UP IN CHAIR WATCHING TV AT THIS TIME. NO ACUTE DISTRESS NOTED. VSS. WILL CONTINUE PLAN OF CARE.
--- NOTE | 2018-11-16 14:37 | NUR ---
PER DR HERNÁNDEZ, TRANSFER TO FLOOR. CHANGE Q3H SLIDING SCALE TO ACHS. AND ADVANCE CLEAR LIQUID DIET TO DIABETIC TOLERATED. NO ACUTE DISTRESS NOTED. VSS. WILL CONTINUE PLAN OF CARE.
--- NOTE | 2018-11-16 16:25 | NUR ---
UP IN CHAIR WATCHING TV AT THIS TIME AND EATING SUPPER. NO ACUTE DISTRESS NOTED. VSS. CALL LIGHT IN REACH. WILL CONTINUE PLAN OF CARE.
--- NOTE | 2018-11-16 17:25 | NUR ---
REPORT CALLED TO RECIEVING NURSE, WILL TRANSFER PT SHORTLY. NO ACUTE DISTRESS NOTED. VSS.
--- NOTE | 2018-11-16 17:36 | NUR ---
TRANSFERRED TO ROOM 2236 AT THIS TIME VIA WHEELCHAIR WITH ALL PERSONAL ITEMS. NO ACUTE DISTRESS NOTED. VSS. NO FURTHER ACTIONS.
--- NOTE | 2018-11-16 17:47 | NUR ---
ALERT AND ORIENTED X4. DENIES ANY PAIN OR DISCOMFORT. AMBULATING WITH SBA. SKIN WARM AND DRY. LUNGS CTA. ENCOURAGED TO USE CALL IGHT FOR ASSIST.
--- NOTE | 2018-11-16 20:30 | NUR ---
PT SITTING UP IN BED WITHOUT DISTRESS. AOX4. IV RIGHT FA SL. DENIES NAUSEA BUT STATES HE HAD BEEN DURING DINNER AND DID NOT EAT MUCH, REQUESTED SOMETHING TO EAT. GAVE SANDWICH TRAY, SUGAR FREE JELLO AND UNSWEET TEA. FSBS 206, GAVE LANTUS AND REGULAR INSULIN ORDERED. DENIES OTHER NEEDS. CL IN REACH, WILL CTM
[2018-11-17] VITALS: BP 129/84
[2018-11-17 04:00] VITALS: BP 116/83
[2018-11-17 06:35] LABS: BASOPHILS 0.3 % (0-2); EOSINOPHILS 2.1 % (0-7); HEMATOCRIT 40.7 % (42.0-54.0); HEMOGLOBIN 14.3 g/dL (13.5-17.5); IMMATURE GRANULOCYTES 0.2 % (0-5); LYMPHOCYTES 43.2 % (15-50); MCH 31.7 pg (26.0-34.0); MCHC 35.1 g/dL (31.0-37.0); MCV 90.2 fL (80.0-100.0); MEAN PLATELET VOLUME 9.3 fL (7.4-10.4); MONOCYTES 7.8 % (2-11); NEUTROPHILS 46.4 % (40-80); PLATELET COUNT 186 10x3/uL (130-400); RBC 4.51 10x6/uL (4.20-6.10); RDW 12.2 % (11.5-14.5); WBC 6.7 10x3/uL (4.8-10.8)
[2018-11-17 06:47] LABS: CALC OSMOLALITY 279 mosm/kg (275-300); CALCIUM 8.1 mg/dL (8.5-10.1); CARBON DIOXIDE 29.5 mmol/L (21.0-32.0); CHLORIDE - SERUM 101 mmol/L (98-107); CREATININE - SERUM 1.1 mg/dL (0.6-1.3); GLUCOSE 249 mg/dL (74-106); MAGNESIUM - SERUM 1.7 mg/dL (1.8-2.4); PHOSPHOROUS 3.2 mg/dL (2.5-4.9); POTASSIUM - SERUM 4.1 mmol/L (3.5-5.1); SODIUM 136 mmol/L (136-145); UREA NITROGEN 12 mg/dL (7-18); eGFR NON AFRICAN AMERICAN 77 mL/min (90-120)
[2018-11-17 08:35] VITALS: BP 135/84
--- NOTE | 2018-11-17 09:00 | NUR ---
ALERT AND ORIENTED X4. SKIN WARM AND DRY WITH NO S/S OF HYPERGLYCEMIA AT THIS TIME. S/L TO RT. FOREARM WITH NO S/S OF INFILTRATION NOTED. DENIES ANY PAIN OR DISCOMFORT AT THIS TIME. ENCOURAGED TO USE CALL LIGHT FOR ASSIST. UP ADLIB
[2018-11-17 12:31] VITALS: BP 129/85
--- NOTE | 2018-11-17 15:18 | MORECARE ---
CASE MANAGEMENT DISCHARGE SUMMARY PATIENT: MARIBELL ORNELAS UNIT: [id number] ADM DATE: 11/13/18 AGE: 43 : 71 SEX: M ROOM/BED: D.2236 AUTHOR: LIANADOC PHYSICIAN: REFERRING PHYSICIAN: LEIDA HERNÁNDEZ MD DATE OF SERVICE: 11/17/18 Discharge Plan Patient Name: MARIBELL ORNELAS Facility: [facility]:[place] : 1975 Planned Disposition: Home Anticipated Discharge Date: Discharge Date: Expected LOS: Initial Reviewer: [email or web address] Initial Review Date: 11/15/2018 Generated: 11/17/18 4:17 pm Comments DCP- Discharge Planning Updated by [email or web address]: Ariana Post on 11/17/18 2:[address] Patient Name: MARIBELL ORNELAS Encounter No: [id number] : 1975 Primary Insurance: [facility] [employer] Anticipated DC Date: Planned Disposition: Home External Planned Provider: : DCP follow-up note: Patient and family in agreement with discharge plan. No changes to plan. Spoke with patient about diabetic supplies. Informed him he could get a glucometer from [employer] for less than 10 dollars and insurance may pay for it. Patient states he has several at home but if they aren't working correctly he will purchase a new one. Case management will follow and assist as needed. 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 Patient lives at home alone where he is independent with his care and plans to return there upon discharge. Patient feels this would be a safe discharge. CM discussed availability / needs of home health and medical equipment. Patient denies any discharge needs at this time. Patient states he will have his family drive him home upon discharge. CM will continue to follow and assist as needed with discharge planning / needs. Digital Librarian: Divya Mariscal DCPIA - Discharge Planning Initial Assessment Updated by [email or web address]: Divya Mariscal on 11/15/18 9:39 pm * Is the patient Alert and Oriented? Yes * How many steps to enter\exit or inside your home? * PCP [facility] * Pharmacy [facility] * Preadmission Environment Home Alone * ADLs Independent * Equipment None * List name and contact numbers for known caregivers / representatives who currently or will assist patient after discharge: ALEXUS ORNELAS [facility] - [phone] * Verbal permission to speak to the caregivers and representatives has been obtained from the patient. N/A * Community resources currently utilized None * Additional services required to return to the preadmission environment? No * Can the patient safely return to the preadmission environment? Yes * Has this patient been hospitalized within the prior 30 days at any hospital? No Last DP export: 11/15/18 8:45 p Patient Name: MARIBELL ORNELAS Page [id number] at 1518 All edits/amendments must be made on the electronic document DICTATION DATE: 11/17/181516 DRY DRUG WORKER: JI 11/17/181516 RPT#: [id number] DC DATE: STATUS: ADM IN [facility] [address] [place] [address] END OF REPORT
--- NOTE | 2018-11-20 16:14 | MORECARE ---
CASE MANAGEMENT DISCHARGE SUMMARY PATIENT: MARIBELL ORNELAS UNIT: [id number] ADM DATE: 11/13/18 AGE: 43 : 71 SEX: M ROOM/BED: D.2236 AUTHOR: LIANADOC PHYSICIAN: REFERRING PHYSICIAN: LEIDA HERNÁNDEZ MD DATE OF SERVICE: 11/20/18 Discharge Plan Patient Name: MARIBELL ORNELAS Facility: [facility]:[place] : 1975 Planned Disposition: Home Anticipated Discharge Date: Discharge Date: 11/17/2018 Expected LOS: 0 Initial Reviewer: [email or web address] Initial Review Date: 11/15/2018 Generated: 11/20/18 5:14 pm Comments DCP- Discharge Planning Updated by [email or web address]: Ariana Post on 11/17/18 2:[address] Patient Name: MARIBELL ORNELAS Encounter No: [id number] : 1975 Primary Insurance: [facility] [employer] Anticipated DC Date: Planned Disposition: Home External Planned Provider: : DCP follow-up note: Patient and family in agreement with discharge plan. No changes to plan. Spoke with patient about diabetic supplies. Informed him he could get a glucometer from [employer] for less than 10 dollars and insurance may pay for it. Patient states he has several at home but if they aren't working correctly he will purchase a new one. Case management will follow and assist as needed. Ariana Post DCP- Discharge Planning Updated by [email or web address]: Divya Mariscal on 11/15/18 8:[address] Patient Name: MARIBELL ORNELAS Admission Status: ER Accout number: [id number] Admission Date: 11-13-2018 : 1975 Admission Diagnosis:TYPE 2 DIABETES MELLITUS WITH KETOACIDOSIS WITHOUT COMA Attending: LEIDA HERNÁNDEZ Current LOS: 2 Anticipated DC Date: Planned Disposition: Home Primary Insurance: [facility] Discharge Planning Comments: CM met with patient at bedside after explaining CM role and obtaining verbal consent. Patient lives at home alone where he is independent with his care and plans to return there upon discharge. Patient feels this would be a safe discharge. CM discussed availability / needs of home health and medical equipment. Patient denies any discharge needs at this time. Patient states he will have his family drive him home upon discharge. CM will continue to follow and assist as needed with discharge planning / needs. Line Assigner: Divya LUU - Discharge Planning Initial Assessment Updated by [email or web address]: Divya Mariscal on 11/15/18 9:39 pm * Is the patient Alert and Oriented? Yes * How many steps to enter\exit or inside your home? * PCP [facility] * Pharmacy [facility] * Preadmission Environment Home Alone * ADLs Independent * Equipment None * List name and contact numbers for known caregivers / representatives who currently or will assist patient after discharge: ALEXUS ORNELAS [facility] - [phone] * Verbal permission to speak to the caregivers and representatives has been obtained from the patient. N/A * Community resources currently utilized None * Additional services required to return to the preadmission environment? No * Can the patient safely return to the preadmission environment? Yes * Has this patient been hospitalized within the prior 30 days at any hospital? No Last DP export: 11/17/18 2:18 pm Patient Name: MARIBELL ORNELAS Page [id number] at 1614 All edits/amendments must be made on the electronic document DICTATION DATE: 11/20/181613 LOGGING SUPERVISOR: JI 11/20/181613 RPT#: [id number] [place] DATE:11/17/18 STATUS: DIS IN [facility] [address] [place] [address] END OF REPORT
== END 2018-11-17 15:30 | disposition home or self-care (01) | DRG 638 ==
LOC: D.ER 06:23 → D.ICU 09:07 → D.MS 11-16 17:37
PROVIDERS: Family Medicine; ADMIT Internal Medicine Nephrology; ATTEND Internal Medicine Nephrology
DX: E11.10 Type 2 diabetes mellitus with ketoacidosis without coma (principal); E87.2 Acidosis; N17.9 Acute kidney failure, unspecified; F17.203 Nicotine dependence unspecified, with withdrawal; I10 Essential (primary) hypertension; E87.6 Hypokalemia; F12.90 Cannabis use, unspecified, uncomplicated; E11.65 Type 2 diabetes mellitus with hyperglycemia; R79.89 Other specified abnormal findings of blood chemistry; Z79.4 Long term (current) use of insulin